=== PATIENT | male | born 1985 | race Caucasian/White ===

== ENCOUNTER 2023-07-22 14:09 | Emergency (ER) | payer BC, SELFPAY ==
[2023-07-22 14:15] VITALS: BP 149/84; PULSE 70; RESP 18; TEMP 37.4; O2SAT 100
--- NOTE | 2023-07-22 14:15 | ED.BACK ---
HPI - Back Pain/Injury General Chief Complaint: Back Pain/Injury Stated Complaint: left side back pain Time Seen by Provider: 07/22/23 14:23 Source: patient and RN notes reviewed Mode of arrival: ambulatory Limitations: no limitations History of Present Illness HPI Narrative: 37-year-old male presents to the [facility] with complaints of left-sided back pain and a lesion to the bottom of his nose. Patient reports that he was pulling out the ladder from his sister's pool when he twisted his back wrong. No loss or retention of bowel bladder. Denies abdominal pain. No midline tenderness. Currently on methocarbamol and states that is not working well Has a scabbed over area to the bottom portion of the nose. Related Data Allergies Allergy/AdvReac Type Severity Reaction Status Date / Time Bumble Bee Allergy Mild Swelling Uncoded 07/22/23 14:21 Careless [place] Allergy Mild POISON VENUS Uncoded 07/22/23 14:12 Wasp Allergy Mild swelling Uncoded 07/22/23 14:12 Review of Systems Review of Systems: All systems reviewed & are unremarkable except as noted in HPI and below Constitutional: Constitutional: Reports no additional constitutional complaints Eyes: Eyes: Reports no additional eye complaints ENT: Reports system reviewed and no additional complaints, except as documented Cardiovascular: Cardiovascular: Reports no additional cardiovascular complaints, Denies chest pain and Denies dyspnea Respiratory: Respiratory: Reports no additional respiratory complaints, Denies chest congestion, Denies cough and Denies dyspnea Gastrointestinal: Gastrointestinal: Reports no additional gastrointestinal complaints, Denies abdominal pain, Denies nausea and Denies vomiting Musculoskeletal: Musculoskeletal: Reports as per HPI and Reports back pain Integumentary/Breasts: Skin/Breast: Reports as per HPI Neurologic: Reports system reviewed and no additional complaints, except as documented Psychiatric: Psychiatric: Reports no additional psychiatric complaints Allergic/Immunologic: Allergic/Immunologic: Reports no additional allergic/immunologic complaints PMFSH Comments At the time of my signature, I reviewed and agree with the nursing past medical, surgical, social, and family history. There is no relevant family history pertinent to the patient complaint. Exam Const: General: cooperative, healthy appearing, comfortable, no acute distress, well developed, alert and well nourished Nutritional Appearance: well nourished Orientation/consciousness: patient oriented x3 Limitations: no limitations HENMT: Head: normal to inspection Ears: hearing grossly normal bilaterally and external ears normal Face/Nose/Sinus: Normal external nose present, Normal nares present, Normal nasal mucous membranes and turbinates present, normal facial exam and face symmetric Nose image: 1. Scabbed over area without swelling or erythema. Face and sinus: normal facial exam and face symmetric Eyes: General: appearance normal, both eyes and all related structures Alignment and Position: alignment normal Periorbital: periorbital findings normal Pupils: Equal, round and reactive pupils present EOM: EOMs intact bilaterally Neck: Neck: normal visual inspection, full ROM, no lymphadenopathy and no meningeal signs Chest: Chest palpation & inspection: normal inspection of the chest Resp: Effort & Inspection: normal respiratory effort and able to speak in complete sentences Auscultation: clear to auscultation bilaterally, no crackles, no rales, no rhonchi and no wheezes Cardio: Rate: regular rate Rhythm: regular rhythm Back/Spine/Pelvis: Back: no CVA tenderness Cervical Spine: normal cervical lordosis and No Cervical spine tenderness Thoracic/Lumbar Spine: paraspinal muscle tenderness on the left in the lower lumbar, No thoracic spinal tenderness and No lumbar spinal tenderness Pelvis: no pain with anterior-posterior compression and no pain with lateral compression
[2023-07-22 14:33] VITALS: BP 149/84; PULSE 70; RESP 18; TEMP 37.4; O2SAT 100
== END 2023-07-22 14:45 | disposition home or self-care (01) ==
PROVIDERS: Emergency Provider Nurse Practitioner
DX: S39.012A Strain of muscle, fascia and tendon of lower back, initial encounter (principal); X50.9XXA Other and unspecified overexertion or strenuous movements or postures, initial encounter; J34.89 Other specified disorders of nose and nasal sinuses; R73.03 Prediabetes
CPT/HCPCS: 99213; G0463